=== PATIENT | female | born 1995 | race Caucasian/White ===

== ENCOUNTER 2018-07-31 16:52 | Emergency (ER) | payer MEDICAID ==
[2018-07-31] MEDS ORDERED: NS 1,000 ML IV ONE (17:02)
--- NOTE | 2018-07-31 17:02 | EDPHY ---
H & P Time Seen by Provider: 07/31/18 16:59 HPI/ROS: HPI: This is a 23-year-old female who presents with Chief Complaint: Epigastric pain/chest pain Location: Epigastric, midsternal Quality: Sharp, burning pain Duration: 45 min prior to arrival Signs and Symptoms: no shortness of breath at rest, no shortness of breath on exertion, no cough, + chest pain, no palpitations, no lower extremity edema, no wheezing, no orthopnea, no paroxysmal nocturnal dyspnea, no fever, no injury/ trauma, no hemoptysis, no carpal pedal spasms Timing: Acute, waxes and wane Severity: Moderate to severe Context: Patient presents with sudden onset of epigastric/midsternal nonradiating pain that is described as sharp and burning that occurred approximately 45 min prior to arrival while 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 Denies vomiting, shortness of breath, lower extremity edema, diaphoresis, cardiac awareness, anxiety. Patient has not ate ate anything since breakfast. Reports that drinking water makes the "pain worse." Denies any fatty or fried food intolerances, early satiety, abdominal bloating, diarrhea, urinary symptoms, vaginal bleeding/discharge. Modifying Factors: None Comment: ROS: A comprehensive 10 system review of systems is otherwise negative aside from elements mentioned in the history of present illness. MEDICAL/SURGICAL/SOCIAL HISTORY: Medical history: Generally healthy. Does not take any regular medications. Last menstrual period 1 month ago. Does not take control. Surgical history: Denies Social history: Employed at [employer]. Denies tobacco, drug use. CONSTITUTIONAL: Anxious extremely well-appearing young adult white female, awake and alert, no obvious distress HEENT: Atraumatic and normocephalic, PERRL, EOMI. Nares patent; no rhinorrhea; no nasal mucosal edema. Tympanic membranes clear. Oropharynx clear, no exudate and moist pink mucosa. Airway patent. No lymphadenopathy. No meningismus. Cardiovascular: Normal S1/S2, regular rate, regular rhythm, without murmur rub or gallop. PULMONARY/CHEST: Symmetrical and nontender. Clear to auscultation bilaterally. Good air movement. No accessory muscle usage. ABDOMEN: Soft, nondistended, mild right upper quadrant tenderness to deep palpation, moderate epigastric tenderness, no rebound, no guarding, no peritoneal signs, no masses or organomegaly. No CVAT. EXTREMITIES: 2/2 pulses, strength 5/5, no deformities, no clubbing, no cyanosis or edema. Negative Homans sign. NEUROLOGICAL: no focal neuro deficits. GCS 15. SKIN: Warm and dry, no erythema. no rash. Good capillary refill. Source: Patient Exam Limitations: No limitations Constitutional: Initial Vital Signs Temperature (C) 36.9 C 07/31/18 16:58 Heart Rate 86 07/31/18 16:58 Respiratory Rate 18 07/31/18 16:58 Blood Pressure 121/78 H 07/31/18 16:58 O2 Sat (%) 98 07/31/18 16:58 O2 Delivery Mode Room Air Allergies/Adverse Reactions: lactose Allergy (Verified 07/31/18 17:03) Home Medications: Medication Instructions Recorded [place] 07/31/18 Medical Decision Making - Diagnostics EKG Interpretation: 12 lead EKG: Indication: Chest pain Rhythm: Normal sinus rhythm, rate 86 beats per minute Reedy: Borderline left Intervals: Normal QRS: Normal ST segments: Normal INTERPRETATION: No acute ischemic changes The 12 lead EKG was interpreted by myself and with attending. Imaging Results: Imaging Impressions Chest X-Ray 07/31/18 17:02 Impression: Clear lungs. No acute process. Abdomen Ultrasound 07/31/18 17:03 Impression: No evidence for cholelithiasis or cholecystitis. Limited visualization of the pancreas and aorta secondary to overlying bowel gas. Results called and discussed with Emi Murphy, on 07/31/2018, 18:08. ED Course/Re-evaluation: Vital signs reviewed and stable upon arrival. Placed on brazer induction. EKG obtained and shows normal sinus rhythm with no acute ischemic changes, no heart block, no arrhythmias. IV access, laboratory studies, chest x-ray and right upper quadrant ultrasound ordered Given 1 L normal saline, IV Protonix 40 mg and GI cocktail 1730: Laboratory studies reviewed. No signs of leukocytosis/anemia/platelet dysfunction/RANULFO/elevated LFTs/electrolyte imbalance/pancreatitis// coagulopathy/VTE. 1738: Notified by tech that troponin 0.01 1800: Called by radiologist, Dr. Aguillon, that abdominal ultrasound is completely unremarkable. 1838: Chest x-ray my read no effusion, no opacity, no pneumothorax, no widened mediastinum. Reassessed patient reports relief of symptoms. Tolerating p.o. Advised start Zantac verses Nexium [id number] with gastroenterology follow-up as needed for possible EGD. This patient was seen under the supervision of my secondary supervising physician. I evaluated and cared for this patient independently. Differential Diagnosis: Chest pain including but not limited to myocardial ischemia, pulmonary embolus, chest wall pain, pleural inflammation and pulmonary infectious causes. - Data Points Laboratory Results: Laboratory Results 07/31/18 17:17 07/31/18 17:17 07/31/18 07/31/18 07/31/18 17:24 17:17 17:17 WBC RBC Hgb Hct MCV MCH MCHC RDW Plt Count MPV Neut % (Auto) Lymph % (Auto) [place] % (Auto) Eos % (Auto) Baso % (Auto) Nucleat RBC Rel Count Absolute Neuts (auto) Absolute Lymphs (auto) Absolute Monos (auto) Absolute Eos (auto) Absolute Basos (auto) Absolute Nucleated RBC Immature Gran % Immature Gran # PT INR APTT D-Dimer Sodium 133 mEq/L L mEq/L (135-145) Potassium 4.1 mEq/L mEq/L (3.5-5.2) Chloride 105 mEq/L mEq/L (97-110) Carbon Dioxide 18 mEq/l L mEq/l (22-31) Anion Gap 10 mEq/L mEq/L (6-14) BUN 7 mg/dL mg/dL (7-23) Creatinine 0.6 mg/dL mg/dL (0.6-1.0) Estimated GFR > 60 Glucose 93 mg/dL mg/dL (70-100) Calcium 9.5 mg/dL mg/dL (8.5-10.4) Total Bilirubin 0.6 mg/dL mg/dL (0.1-1.4) Conjugated Bilirubin 0.1 mg/dL mg/dL (0.0-0.5) Unconjugated Bilirubin 0.5 mg/dL mg/dL (0.0-1.1) AST 31 IU/L IU/L (14-46) ALT 27 IU/L IU/L (9-52) Alkaline Phosphatase 73 IU/L IU/L (38-126) POC Troponin I 0.01 ng/mL ng/mL (0.00-0.08) Total Protein 7.1 g/dL g/dL (6.3-8.2) Albumin 4.4 g/dL g/dL (3.5-5.0) Lipase 84 IU/L IU/L (23-300) Beta HCG, Qual NEGATIVE 07/31/18 07/31/18 17:17 17:17 WBC 7.56 10^3/uL 10^3/uL (3.80-9.50) RBC 4.35 10^6/uL 10^6/uL (4.18-5.33) Hgb 13.1 g/dL g/dL (12.6-16.3) Hct 39.6 % % (38.0-47.0) MCV 91.0 fL fL (81.5-99.8) MCH 30.1 pg pg (27.9-34.1) MCHC 33.1 g/dL g/dL (32.4-36.7) RDW 13.2 % % (11.5-15.2) Plt Count 197 10^3/uL 10^3/uL (150-400) MPV 10.3 fL fL (8.7-11.7) Neut % (Auto) 73.3 % % (39.3-74.2) Lymph % (Auto) 19.3 % % (15.0-45.0) [place] % (Auto) 6.0 % % (4.5-13.0) Eos % (Auto) 0.7 % % (0.6-7.6) Baso % (Auto) 0.4 % % (0.3-1.7) Nucleat RBC Rel Count 0.0 % % (0.0-0.2) Absolute Neuts (auto) 5.55 10^3/uL 10^3/uL (1.70-6.50) Absolute Lymphs (auto) 1.46 10^3/uL 10^3/uL (1.00-3.00) Absolute Monos (auto) 0.45 10^3/uL 10^3/uL (0.30-0.80) Absolute Eos (auto) 0.05 10^3/uL 10^3/uL (0.03-0.40) Absolute Basos (auto) 0.03 10^3/uL 10^3/uL (0.02-0.10) Absolute Nucleated RBC 0.00 10^3/uL 10^3/uL (0-0.01) Immature Gran % 0.3 % % (0.0-1.1) Immature Gran # 0.02 10^3/uL 10^3/uL (0.00-0.10) PT 12.6 SEC SEC (12.0-15.0) INR 0.98 (0.83-1.16) APTT 26.7 SEC SEC (23.0-38.0) D-Dimer < 0.27 ug/mLFEU ug/mLFEU (0.00-0.50) Sodium Potassium Chloride Carbon Dioxide Anion Gap BUN Creatinine Estimated GFR Glucose Calcium Total Bilirubin Conjugated Bilirubin Unconjugated Bilirubin AST ALT Alkaline Phosphatase POC Troponin I Total Protein Albumin Lipase Beta HCG, Qual Medications Given: Discontinued Medications Sodium Chloride (Ns) 1,000 mls @ 0 mls/hr IV EDNOW ONE; Wide Open PRN Reason: Protocol Stop: 07/31/18 17:03 Last Admin: 07/31/18 17:23 Dose: 1,000 mls Point of Care Test Results: Chemistry 07/31/18 17:24 POC Troponin I 0.01 ng/mL ng/mL (0.00-0.08) Departure - Departure Clinical Impression: Chest pain due to GERD Condition: Good Instructions: Ranitidine (By mouth), Esomeprazole (By mouth), Diet for Stomach Ulcers and Gastritis (ED), Gastroesophageal Reflux Disease (ED) Additional Instructions: Consume a minimum of 8-10 glasses of water or electrolyte fluid replacement drinks that include Gatorade, Powerade, Pedialyte. Eat a bland diet for the next 48 hours and then slowly advance as tolerated to a GERD/gastritis diet. Take Zofran 1 tab every 4 hours as needed for nausea, vomiting. Take [id number] Zantac or Nexium daily for GERD. If symptoms persist greater than 1-2 weeks, follow-up with Gastroenterology for further evaluation. Referrals: [facility],. [Clinic] - As per Instructions Gume Chavez MD [Medical Doctor] - As per Instructions Stand Alone Forms: Work Excuse
[2018-07-31] MEDS: MAG HYDROX/AL HYDROX/SIMETH 30 ML UDCUP PO ONE ×2 (17:23→18:42)
[2018-07-31] MEDS: LIDOCAINE 2% VISCOUS 15 ML UDCUP PO ONE ×2 (17:23→18:42)
[2018-07-31] MEDS: PANTOPRAZOLE SODIUM 40 MG VIAL IVP ONE ×2 (17:24→18:42)
[2018-07-31] MEDS: HYOSCYAMINE SULFATE 0.125 MG TAB PO ONE ×2 (17:25→18:41)
[2018-07-31 17:26] LABS: PLATELET COUNT 197 10^3/uL (150-400)
[2018-07-31 17:36] LABS: INR 0.98 (0.83-1.16); PROTIME(PATIENT) 12.6 SEC (12.0-15.0)
[2018-07-31 18:32] VITALS: BP 111/67
--- NOTE | 2018-07-31 18:46 | CPEKG ---
Test Reason : OPEN Blood Pressure : / mmHG Vent. Rate : 086 BPM Atrial Rate : 084 BPM P-R Int : 134 ms QRS Dur : 104 ms QT Int : 367 ms P-R-T Axes : 042 -30 056 degrees QTc Int : 439 ms Sinus rhythm Left axis deviation Confirmed by Travis Cotto ([id number]) on 07/31/2018 6:46:27 PM Referred By: Travis Cotto Confirmed By:Travis Cotto
== END 2018-07-31 18:45 | disposition home or self-care (01) ==
DX: R10.13 Epigastric pain (principal); K21.9 Gastro-esophageal reflux disease without esophagitis; E86.9 Volume depletion, unspecified
CPT/HCPCS: 84484-ER